=== PATIENT | female | born 1985 | race American Indian/Alaskan Native ===

== ENCOUNTER 2018-04-17 23:23 | Outpatient (CLI) | payer OTHER ==
[2018-04-17] MEDS ORDERED: LACTATED RINGERS 500 ML IV ONE (23:56)
[2018-04-18] MEDS ORDERED: LACTATED RINGERS 1,000 ML ONE (00:07)
[2018-04-18 01:38] VITALS: BP 125/79
[2018-04-18 01:50] LABS: Bilirubin,Urine NEG (Negative); Blood,Urine NEG (Negative); Color,Urine Yellow (Yellow); Hyaline Casts,Urine 1 /LPF; Mucus,Urine FEW /HPF; Protein,Urine <15 mg/dL mg/dL (Negative)
== END 2018-04-18 02:29 | disposition home or self-care (01) ==
LOC: SPVWC 23:23 → TRG 23:23
PROVIDERS: ATTEND Obstetrics & Gynecology
DX: O26.892 Other specified pregnancy related conditions, second trimester (principal); R10.30 Lower abdominal pain, unspecified; Z3A.20 20 weeks gestation of pregnancy
CPT/HCPCS: 81001; 96360; J7120

== ENCOUNTER 2018-08-05 12:07 | Inpatient (IN) | payer MEDICAID ==
[2018-08-05] MEDS ORDERED: LACTATED RINGERS 1,000 ML ONE (12:43)
[2018-08-05] MEDS ORDERED: BRETHINE ONE (12:52)
[2018-08-05] MEDS ORDERED: BRETHINE SUB-Q ONE (12:57)
[2018-08-05] MEDS ORDERED: CELESTONE SOLUSPAN IM ONE (12:58)
[2018-08-05] MEDS ORDERED: AMPICILLIN/NS 2 GM/100 ML 2 GM/100 ML BAG IV ONE (12:58)
[2018-08-05] MEDS ORDERED: LACTATED RINGERS 1,000 ML IV SCH (13:00)
[2018-08-05] MEDS ORDERED: BRETHINE SUB-Q PRN (13:00)
[2018-08-05] MEDS ORDERED: XYLOCAINE 2% INFILTRATI ONE (13:00)
[2018-08-05] MEDS ORDERED: PITOCin/NS 20 UNIT/1000ML DRIP 20 UNITS/1,000 ML BAG IV SCH (13:00)
[2018-08-05 13:30] LABS: Hemoglobin 12.9 gm/dl (10.1-14.3); Mean Corpuscular HGB Conc 34 % (30-34); Mean Corpuscular Volume 78 fl (79-97); Platelet Count 220 K/mm3 (140-440); Red Blood Count 4.84 M/mm3 (3.65-5.03)
[2018-08-05] MEDS ORDERED: PITOCin/NS 30 UNIT/500ML 30 UNITS/500 ML BAG IV SCH (14:00)
[2018-08-05] MEDS ORDERED: METHERGINE IM ONE ×2 (14:14→17:50)
--- NOTE | 2018-08-05 14:46 | History and Physical Report ---
History of Present Illness Date of examination: 08/05/18 Date of admission: 08/05/18 12:44 Chief complaint: Twin gestation at 35 weeks and 6 days in active labor. History of present illness: Patient is a 33 year old , LMP unknown, EDC 09/03/18 at 35 weeks and 6 days with twins gestation who presented to triage complaining of contractions since 10 AM. She denies any fluid leakage or bleeding. She reports good movement. tracing is CAT1 for both babies. Cervix is 9 cm/100%/-1. Bedside sonogram showed both babies to be vertex. Past History Past Medical History: no pertinent history Past Surgical History: no surgical history Family/Genetic History: none Social history: no significant social history - Obstetrical History Expected Date of Delivery: 09/03/18 Actual Gestation: 35 Week(s) 6 Day(s) : 7 Para: 3 Hx # Term Pregnancies: 0 Spontaneous Abortions: 1 Induced : 2 Number of Living Children: 3 Medications and Allergies Allergies Allergy/AdvReac Type Severity Reaction Status Date / Time Iodine and Iodide Containing Allergy Hives Verified 07/07/18 22:02 Produc shellfish derived Allergy Hives Verified 07/07/18 22:02 Home Medications Medication Instructions Recorded Confirmed Last Taken Type Acetaminophen/Codeine 1 tab PO Q6H PRN #25 tab 06/01/14 05/15/16 Unknown Rx [Acetaminophen-Codeine #3 TAB] Ibuprofen [Motrin] 600 mg PO Q8H PRN #50 tablet 06/01/14 05/15/16 Unknown Rx Penicillin Vk [Veetids TAB] 500 mg PO QID #40 tablet 06/01/14 05/15/16 Unknown Rx Ciprofloxacin HCl [Cipro] 250 mg PO BID #14 tablet 08/29/14 05/15/16 Unknown Rx Ondansetron [Zofran Odt] 4 mg PO Q8HR PRN #8 tab.rapdis 08/29/14 05/15/16 Unknown Rx Vitamin 1 tab PO DAILY 05/15/16 05/15/16 05/14/16 History Active Meds: Active Medications Ephedrine Sulfate (Ephedrine Sulfate) 10 mg IV Q2M PRN PRN Reason: Hypotension Lactated Ringer's (Lactated Ringers) 1,000 mls @ 125 mls/hr IV DIRECT CAROL Oxytocin/Sodium Chloride (Pitocin/Ns 20 Unit/1000ml Drip) 20 units in 1,000 mls @ 125 mls/hr IV DIRECT CAROL Oxytocin/Sodium Chloride (Pitocin/Ns 30 Unit/500ml) 30 units in 500 mls @ 4 mls/hr IV TITR CAROL; Protocol Terbutaline Sulfate (Brethine) 0.25 mg SUB-Q ONCE PRN PRN Reason: Hyperstimulation/Hypertonicity - Vital Signs Vital signs: Vital Signs Temp Resp 97.8 F 18 08/05/18 12:30 08/05/18 12:30 Temp Pulse Resp BP Pulse Ox 97.8 F 111 H 18 112/63 08/05/18 12:30 08/05/18 14:34 08/05/18 12:30 08/05/18 14:34 - Physical Exam Cardiovascular: Normal S1, Normal S2 Lungs: Positive: Clear to auscultation Vulva: both: normal Adnexa: both: normal Deep Tendon Reflex Grade: Normal +2 - Obstetrical FHR: category 1 Uterine Contraction Monitor Mode: External Cervical Dilatation: 9 Cervical Effacement Percentage: 100 station: -1 Uterine Contraction Pattern: Regular Uterine Contraction Intensity: Strong/Firm Results Result Diagrams: 08/05/18 12:50 Abnormal lab results 08/05/18 Range/Units 12:50 MCV 78 L (79-97) fl MCH 27 L (28-32) pg RDW 13.0 L (13.2-15.2) % All other labs normal. Assessment and Plan - Patient Problems (1) Twin , twins dichorionic and diamniotic Current Visit: Yes Status: Acute (2) labor Current Visit: Yes Status: Acute Plan to address problem: Admit to labor floor. Routine admitting labs. monitoring. IV hydration. VTX/VTX. Anticipate . Double set-up for possible C/section. Notify NICU and anesthesia.
--- NOTE | 2018-08-05 14:48 | Ultrasound Report ---
FINAL REPORT PROCEDURE: US OB LIMITED TECHNIQUE: Real-time limited sonographic examination was performed for evaluation of presentat ion for each fetus with image documentation (1 or more fetuses). CPT 68340 HISTORY: presentation COMPARISON: No prior studies are available for comparison. FINDINGS: There is a twin intrauterine . Twin A is in cephalic presentation. Twin B is also in cephali c presentation. Twin A's head is positioned closer to the cervix. IMPRESSION: Very limited sonographic evaluation. Twin A and twin B are both in cephalic presentation.
[2018-08-05] MEDS ORDERED: BENADRYL PO PRN (14:55)
[2018-08-05] MEDS ORDERED: TYLENOL PO PRN (14:55)
[2018-08-05] MEDS ORDERED: TUCKS PAD TP PRN (14:55)
[2018-08-05] MEDS ORDERED: ZOFRAN IV PRN (14:55)
[2018-08-05] MEDS ORDERED: PHENERGAN PR PRN (14:55)
[2018-08-05] MEDS ORDERED: VITAMIN K *NICU IM ONE (14:55)
[2018-08-05] MEDS ORDERED: MILK OF MAGNESIA PO PRN (14:55)
[2018-08-05] MEDS ORDERED: DULCOLAX PR PRN (14:55)
[2018-08-05] MEDS ORDERED: PHENERGAN PO PRN (14:55)
[2018-08-05] MEDS ORDERED: ERYTHROMYCIN OPHTH OINT OU ONE (14:55)
[2018-08-05] MEDS ORDERED: LANSINOH TP PRN (14:55)
[2018-08-05] MEDS ORDERED: SODIUM CHLORIDE FLUSH SYRINGE 10 ML IV NR (15:00)
--- NOTE | 2018-08-05 15:13 | Procedure Note ---
OB Delivery Note - Delivery Date of Delivery: 08/05/18 Surgeon: RAQUEL CRAWLEY Dolly Operator: KALYAN LUNDBERG Estimated blood loss: 200cc - Vaginal Delivery presentation: vertex Delivery position: OA Intrapartum events: none Delivery induction: none Delivery monitor: external FHT Route of delivery: Delivery placenta: spontaneous Delivery cord: nuchal cord Episiotomy: none Delivery laceration: none Anesthesia: none Delivery comments: Patient was admitted at 9 cm dilatation. She became fully dilated and delivered baby A from an JULIANNE position at 1:52 PM with Apgars of 8 at 1 min and 9 at 5 mins. Buld suction of the mouth and nose was performed. There was nuchal cord x 1. The cord was clamped x 2 and cut and the infant was handed to the NICU team. Cord blood collected. Weight was 4 lbs 3 oz. Baby B was delivered from and JEFFERY position at 2:05 PM with Apgars of 8 at 1 min and 9 at 5 mins. Bulb suction of mouth and nose was performed. There was nuchal cord x 1. The cord was clamped x 2 and cut and the was handed to the NICU team. Cord blood was collected. Weight was 4 lbs 6 oz. The placentae were delivered spontaneously and they were complete with 3-vessel cords. No laceration was sustained. No episiotomy was given. The uterus was firm. Patient tolerated the procedure well. She remains stable.
[2018-08-05] MEDS: IBUPROFEN PO SCH ×2 (15:23→23:48)
[2018-08-05] MEDS: PERCOCET 5/325 PO PRN ×2 (15:23→23:51)
[2018-08-05 15:55] LABS: Bacteria,Urine 1+ /HPF (Negative); Bilirubin,Urine NEG (Negative); Blood,Urine NEG (Negative); Color,Urine Yellow (Yellow); Mucus,Urine 3+ /HPF
[2018-08-05 15:56] LABS: Amphetamine Screen,Urine PRESUMPTIVE NEGATIVE; Benzodiazepines Screen,Urine PRESUMPTIVE NEGATIVE; Cannabinoid Screen,Urine PRESUMPTIVE NEGATIVE; Cocaine Screen,Urine PRESUMPTIVE NEGATIVE; Methadone Screen,Urine PRESUMPTIVE NEGATIVE; Opiate Screen,Urine PRESUMPTIVE NEGATIVE
[2018-08-05] MEDS: FEOSOL PO SCH (23:51)
[2018-08-05] MEDS: COLACE PO SCH (23:51)
[2018-08-06] MEDS: ROCEPHIN/NS 1 GM/50 ML 1 GM/50 ML BAG IV SCH (00:04)
[2018-08-06 05:06] LABS: Hematocrit 34.3 % (30.3-42.9); Hemoglobin 11.8 gm/dl (10.1-14.3)
--- NOTE | 2018-08-06 12:57 | Progress Note ---
Assessment and Plan - Patient Problems (1) Status post normal vaginal delivery Current Visit: Yes Status: Acute Plan to address problem: PPD 1 - stable Continue routine PP orders Anticipate discharge in 24-48 hours Subjective - Subjective Date of service: 08/06/18 Principal diagnosis: PPD #1; s/p ; Twin IUP Patient reports: appetite normal, voiding normally, pain well controlled, ambulating normally : doing well, in NICU Objective - Vital Signs Latest vital signs: Vital Signs Temp Pulse Resp BP BP Pulse Ox 08/06/18 07:22 97.8 F 76 18 92/51 08/06/18 05:44 98.2 F 91 H 18 99/61 98 08/06/18 01:18 99.0 F 76 18 116/71 99 08/05/18 16:55 97.9 F 95 H 17 112/63 08/05/18 16:27 110 H 117/70 08/05/18 16:13 102 H 120/71 08/05/18 15:57 100 H 115/68 08/05/18 15:42 102 H 113/70 08/05/18 15:27 100 H 115/67 08/05/18 15:12 110 H 111/70 08/05/18 14:57 108 H 116/69 08/05/18 14:42 110 H 115/64 08/05/18 14:34 111 H 112/63 08/05/18 13:24 102 H 125/73 08/05/18 13:17 112 H 126/75 08/05/18 12:59 88 128/79 Intake and Output 08/05/18 08/06/18 08/06/18 23:59 07:59 15:59 Intake Total 360 360 120 Output Total 500 Balance 360 -140 120 Intake: Oral 360 120 Intake, Free Water 360 Output: Urine 500 Void 500 Other: Total, Intake Amount 360 120 Total, Output Amount 500 - Exam Cardiovascular: Present: Regular rate Lungs: Present: Clear to auscultation, Normal air movement Abdomen: Present: normal appearance Vulva: both: normal Uterus: Present: normal, firm, fundal height at umbilicus Extremities: Present: normal Comments: scant lochia - Labs Labs: Abnormal lab results 08/05/18 08/05/18 Range/Units 12:50 Unknown MCV 78 L (79-97) fl MCH 27 L (28-32) pg RDW 13.0 L (13.2-15.2) % Urine WBC (Auto) 7.0 H (0.0-6.0) /HPF U Epithel Cells (Auto) 18.0 H (0-13.0) /HPF
[2018-08-06] MEDS: IBUPROFEN PO SCH (17:29)
[2018-08-06] MEDS: PERCOCET 5/325 PO PRN (17:29)
[2018-08-06] MEDS: FEOSOL PO SCH ×2 (17:30→22:16)
[2018-08-06] MEDS: COLACE PO SCH ×2 (17:30→22:16)
[2018-08-06] MEDS ORDERED: NACL 0.9% 250ML 250 ML IV ONE (23:54)
[2018-08-07] MEDS: ROCEPHIN/NS 1 GM/50 ML 1 GM/50 ML BAG IV SCH (00:41)
[2018-08-07] MEDS: IBUPROFEN PO SCH ×3 (00:42→12:19)
--- NOTE | 2018-08-07 11:08 | Progress Note ---
Assessment and Plan 1) Status post normal vaginal delivery Current Visit: Yes Status: Acute Plan to address problem: PPD 2 - stable Continue routine PP orders Discharge today Desire BTL Subjective - Subjective Date of service: 08/07/18 Principal diagnosis: PPD #2; s/p ; Twin IUP Patient reports: appetite normal, voiding normally, pain well controlled, flatus, ambulating normally [place]: in NICU (Prematurity, Mom pumping breasts and plans to breastfeed) Objective - Vital Signs Latest vital signs: Vital Signs Temp Pulse Resp BP 08/07/18 07:45 98.1 F 61 20 102/63 08/07/18 00:25 98.4 F 74 18 109/75 08/06/18 16:52 97.9 F 79 18 112/71 Intake and Output 08/06/18 08/07/18 08/07/18 23:59 07:59 15:59 Intake Total 720 600 Balance 720 600 Intake: Oral 480 240 Intake, Free Water 240 360 Other: Total, Intake Amount 480 240 # Voids Void 1 1 - Exam Breasts: Present: normal, Cardiovascular: Present: Regular rate, Normal S1, Normal S2, No murmurs Lungs: Present: Clear to auscultation, Normal air movement Abdomen: Present: normal appearance, soft, normal bowel sounds. Absent: distention Vulva: both: normal Uterus: Present: firm, fundal height at umbilicus Extremities: Present: normal Deep Tendon Reflex Grade: Normal +2
--- NOTE | 2018-08-07 11:09 | Discharge Summary ---
Providers - Providers Date of Admission: 08/05/18 12:44 Date of discharge: 08/07/18 Attending physician: RAQUEL CRAWLEY MD Primary care physician: RAQUEL CRAWLEY MD Hospitalization Reason for admission: active labor, labor, other (Twins) Delivery: Procedure details: See delivery note Episiotomy: none Laceration: none complications: none Discharge diagnosis: delivery (35w6d; Twins) [place] baby: twins Condition at discharge: Good Disposition: DC-01 TO HOME OR SELFCARE Plan - Provider Discharge Summary Activity: routine, no sex for 6 weeks, no heavy lifting 4 weeks, no strenuous exercise Diet: routine Instructions: routine Additional instructions: [] Smoking cessation referral if applicable(refer to patient education folder for contact #) [] Refer to [facility] Booklet Call your doctor immediately for: * Fever > 100.5 * Heavy vaginal bleeding ( >1 pad per hour) * Severe persistent headache * Shortness of breath * Reddened, hot, painful area to leg or breast * Drainage or odor from incision. * Keep incision clean and dry at all times and follow doctor's instructions regarding bathing/showering - Follow up plan Follow up: RAQUEL CRAWLEY MD [Primary Care Provider] - 6 Weeks
[2018-08-07] MEDS: FEOSOL PO SCH (12:19)
[2018-08-07] MEDS: COLACE PO SCH (12:19)
[2018-08-07 13:10] VITALS: BP 127/61
== END 2018-08-07 12:30 | disposition home or self-care (01) | DRG 775 ==
LOC: TRG 12:07 → LD 12:44 → OB 16:31
PROVIDERS: ADMIT Obstetrics & Gynecology; ATTEND Obstetrics & Gynecology
PROC: 10E0XZZ Delivery of Products of Conception, External Approach (ICD-10-PCS; principal; 2018-08-05)
DX: O69.81X1 Labor and delivery complicated by cord around neck, without compression, fetus 1 (principal); O69.81X2 Labor and delivery complicated by cord around neck, without compression, fetus 2; O30.043 Twin pregnancy, dichorionic/diamniotic, third trimester; O60.14X2 Preterm labor third trimester with preterm delivery third trimester, fetus 2; O60.14X1 Preterm labor third trimester with preterm delivery third trimester, fetus 1; Z3A.35 35 weeks gestation of pregnancy; Z37.2 Twins, both liveborn; Z91.041 Radiographic dye allergy status; Z91.013 Allergy to seafood
CPT/HCPCS: 36415; 76815; 80307; 81001; 85014; 85018; 85027; 86592; 86850; 86900; 86901; 88307; G0378; J0290; J0696; J0702; J2210; J2590; J3105; J7050; J7120

== ENCOUNTER 2018-10-15 07:29 | Day surgery (SDC) | payer SELFPAY ==
[2018-10-15] MEDS ORDERED: MARCAINE 0.5% INFILTRATI ONE ×3 (07:32→10:14)
[2018-10-15] MEDS ORDERED: LACTATED RINGERS 1,000 ML IV SCH (08:00)
[2018-10-15] MEDS ORDERED: NACL BACTERIOSTATIC INFILTRATI ONE (08:02)
[2018-10-15] MEDS ORDERED: SUBLIMAZE ONE (08:14)
[2018-10-15] MEDS ORDERED: ZEMURON IV ONE (08:14)
[2018-10-15] MEDS ORDERED: DIPRIVAN 10 MG/ML IV ONE (08:15)
--- NOTE | 2018-10-15 08:43 | Anesthesia Day of Surgery ---
Anesthesia Day of Surgery - Day of Surgery Patient Examined: Yes Patient H&P Reviewed: Yes Patient is NPO: Yes Beta Blockers: No (n/a) Cardiac Clearance: No (n/a) Pulmonary Clearance: No (n/a)
--- NOTE | 2018-10-15 08:43 | Anesthesia Consultation ---
Anesthesia Consult and Med Hx Date of service: 10/15/18 - Airway Anesthetic Teeth Evaluation: Chipped ROM Head & Neck: Adequate Mental/Hyoid Distance: Adequate Mallampati Class: Class I Intubation Access Assessment: Probably Good - Pulmonary Exam CTA: Yes - Cardiac Exam Cardiac Exam: RRR - Pre-Operative Health Status ASA Pre-Surgery Classification: ASA2 Proposed Anesthetic Plan: General - Pulmonary Hx Smoking: Yes (THC, last night) Hx Asthma: No COPD: No Hx Pneumonia: No - Cardiovascular System Hx Hypertension: No Hx Heart Attack/AMI: No Hx Cardia Arrhythmia: No - Central Nervous System Hx Seizures: No Hx Psychiatric Problems: No - Endocrine Hx Renal Disease: No Hx End Stage Renal Disease: No Hx Hypothyroidism: No Hx Hyperthyroidism: No - Hematic Hx Anemia: No Hx Sickle Cell Disease: Yes (Trait only) - Other Systems Hx Alcohol Use: Yes (Occas) Hx Substance Use: Yes (Marijuana occas) Hx Cancer: No - Additional Comments Anesthesia Medical History Comments: no previous surgeries, no FHAC
[2018-10-15] MEDS ORDERED: VERSED IV ONE (09:00)
[2018-10-15] MEDS ORDERED: BLOXIVERZ ONE (10:11)
[2018-10-15] MEDS ORDERED: ROBINUL ONE (10:11)
[2018-10-15] MEDS ORDERED: DECADRON ONE (10:11)
[2018-10-15] MEDS ORDERED: ZOFRAN ONE (10:11)
[2018-10-15] MEDS ORDERED: NACL 0.9% IR ONE (10:14)
[2018-10-15] MEDS ORDERED: TORADOL ONE (10:44)
[2018-10-15] MEDS ORDERED: PROAIR IH ONE (10:59)
--- NOTE | 2018-10-15 11:05 | Operative Report ---
Operative Report Operative Report: Preoperative diagnosis: Multiparity, desires permanent sterilization. Postoperative diagnosis: Same as preoperative diagnosis. Procedure: Laparoscopic tubal ligation. Surgeon: Dr. Coronel Plater Barrel: none Anesthesia: general EBL: negligible IVF: RL 1 liter Complications: none Intraoperative findings: Normal uterus, fallopian tubes and ovaries bilaterally. Procedure details: Risks, benefits, and alternatives of the procedure were discussed in detail with the patient which included but not limited to risk of infection, hemorrhage requiring blood transfusion, injury to the bowel or bladder and blood vessels, failure of the tubal ligation to prevent which can result in unwanted pregnancies in the future. The patient expressed understanding, her questions were answered, and she gave informed consent. The patient was taken to the operating room with an IV fluid using Ringer's lactate. In the operating room, she was placed in a dorsal supine position and given general anesthesia. She was then placed on the stirrups in a dorsal lithotomy position. The perineum, vagina, cervix, and abdomen were washed and she was prepared and draped in usual sterile fashion. EUA revealed the uterus to be 9-week size, anteverted, mobile. The adnexae were not palpable. A bivalve speculum was placed in the vagina and the anterior lip of the cervix was grasped with a single-tooth tenaculum. A HUMI uterine manipulator was advanced into the uterine cavity to provide a means of manipulating the uterus and the procedure. The speculum and tenaculum were then removed. Attention was then turned to the patient's abdomen where a 5 mm skin incision was made in the infraumbilical fold. The Veress needle was introduced into the peritoneal cavity while tenting the abdominal wall. Intraperitoneal placement was confirmed by using a water-filled syringe and by noticing a drop in the intra-abdominal pressure with CO2 gas insufflation. The trocar and sleeves were then advanced without difficulty into the abdomen where intraperitoneal placement was confirmed using laparoscope. Pneumoperitoneum was achieved with 3.5 L of CO2 gas. A second 5 mm skin incision was made in the left lower quadrant and a 5 mm trocar and sleeves were then advanced into the abdominal cavity under direct visualization with the laparoscope. A quick survey of the anatomy revealed a normal uterus, fallopian tubes, and ovaries bilaterally. The left fallopian tube was grasped with bipolar forceps, cauterized at 2 locations, and transected . A similar procedure was done with the right fallopian tube which was cauterized and transected in a similar fashion. Good hemostasis was confirmed. The ports were then opened to release to CO2 gas from the abdomen. The instruments were then removed. The ports were closed with 3.0 vicryl sutures. Steri-Strip and Tegaderm were placed. The HUMI uterine manipulator was then removed from the uterine cavity. The counts of laps, needles, sponges, and instruments were correct 2. The patient tolerated the procedure well. She was awakened from anesthesia and semaj en to the recovery room in a stable condition.
[2018-10-15] MEDS ORDERED: PERCOCET 5/325 PO PRN (11:41)
[2018-10-15 11:57] VITALS: BP 113/67
--- NOTE | 2018-10-15 18:05 | Post Anesthesia Evaluation ---
- Post Anesthesia Evaluation Patient Participated: Yes Airway Patent: Yes Stable Respiratory Function: Yes Nausea/Vomiting: No Temp > 96.8F: Yes Pain Manageable: Yes Adequeate Hydration: Yes Anesthesia Complications: No
== END 2018-10-15 12:35 | disposition home or self-care (01) ==
LOC: OR 07:29
PROVIDERS: ATTEND Obstetrics & Gynecology
DX: Z30.2 Encounter for sterilization (principal); G43.909 Migraine, unspecified, not intractable, without status migrainosus; Z79.899 Other long term (current) drug therapy; Z91.040 Latex allergy status; Z91.041 Radiographic dye allergy status; Z72.89 Other problems related to lifestyle; Z83.3 Family history of diabetes mellitus; Z80.8 Family history of malignant neoplasm of other organs or systems; Z82.49 Family history of ischemic heart disease and other diseases of the circulatory system
CPT/HCPCS: 58670; 81025; J1100; J1885; J2250; J2405; J2704; J2710; J3010; J7120

== ENCOUNTER 2019-06-12 11:05 | Emergency (ER) | payer MEDICAID, OTHER ==
[2019-06-12 11:15] VITALS: BP 134/65
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
== END 2019-06-12 12:05 | disposition left against medical advice (07) ==
LOC: ED 11:05
DX: R51 Headache (principal); V89.2XXA Person injured in unspecified motor-vehicle accident, traffic, initial encounter; Y93.89 Activity, other specified; Y92.89 Other specified places as the place of occurrence of the external cause; Y99.8 Other external cause status
CPT/HCPCS: 99282